=== PATIENT | female | born 1940 | race Caucasian/White ===

== ENCOUNTER 2017-07-19 09:50 | Outpatient (CLI) | payer MEDICARE, OTHER ==
--- NOTE | 2017-07-20 13:55 | Ultrasound Report ---
CAROTID DOPPLER ULTRASOUND: 07/19/2017 No comparison. INDICATION: Screening for cardiovascular disease. TECHNIQUE: Sonographic evaluation of the carotid artery systems was performed bilaterally. Real-time sonographic vascular imaging was performed by the iron erector through the carotid arteries utilizing both color-flow and Doppler spectral analysis. Multiple chain sales representative static images were saved for review. Vessel PSV cm/sec 2D Plaque Estimate % EDV cm/sec ICA/CCA PSV % Stenosis RCCA Prox 81 -- RCCA Dist 72 20 -- RECA 87 -- RT BULB 70 -- 21 0.97 SELMA Prox 65 -- 18 0.90 SELMA Mid 83 -- 27 1.15 SELMA Dist 93 -- 35 1.3 RVA 57 RVA flow direction: Antegrade. Vessel PSV cm/sec 2D Plaque Estimate % EDV cm/sec ICA/CCA PSV % Stenosis LCCA Prox 79 -- LCCA Dist 84 23 -- LECA 90 -- LFT BULB 60 -- 17 0.71 LICA Prox 70 -- 22 0.83 LICA Mid 95 -- 29 1.13 LICA Dist 70 -- 28 0.83 LVA 48 LVA flow direction: Antegrade. Velocity criteria are extrapolated from diameter data as defined by the Society of Radiologists in Ultrasound Consensus Conference Radiology 2003; 229; 340-346. Degree of Stenosis % ICA PSV cm/sec Plaque Estimate % ICA/CCA RSV Ratio ICA EDV cm/sec Normal < 125 None < 2.0 < 40 <50 < 125 < 50 < 2.0 < 40 50-69 125 - 130 >/= 50 2.0 - 4.0 40 - 100 >/= 70 but less than near occlusion > 230 >/= 50 > 4.0 > 100 Near occlusion High, low, or undetectable Visible lumen Variable Variable Total occlusion Undetectable No detectable lumen Not applicable Not applicable FINDINGS RIGHT: There is mild plaquing in the right carotid bifurcation, without evidence of a focal hemodynamically significant carotid stenosis. LEFT: There is mild plaquing in the left carotid bifurcation, without evidence of a focal hemodynamically significant carotid stenosis. The vertebral arteries demonstrate antegrade flow bilaterally. IMPRESSION: NO EVIDENCE OF CLINICALLY SIGNIFICANT STENOSIS. MTDD
== END 2017-07-19 09:51 | disposition home or self-care (01) ==
LOC: DI 09:50
PROVIDERS: ATTEND Internal Medicine
DX: Z13.6 Encounter for screening for cardiovascular disorders (principal); E78.5 Hyperlipidemia, unspecified; Z82.3 Family history of stroke
CPT/HCPCS: 93880

== ENCOUNTER 2017-09-29 16:49 | Outpatient (CLI) | payer MEDICARE, OTHER ==
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
== END 2017-09-29 16:50 | disposition home or self-care (01) ==
LOC: DI 16:49
PROVIDERS: ATTEND Podiatrist
DX: M19.072 Primary osteoarthritis, left ankle and foot (principal)

== ENCOUNTER 2017-10-20 08:09 | Outpatient (CLI) | payer MEDICARE, OTHER ==
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
== END 2017-10-20 08:10 | disposition home or self-care (01) ==
LOC: DI 08:09
PROVIDERS: ATTEND Podiatrist
DX: M19.072 Primary osteoarthritis, left ankle and foot (principal)

== ENCOUNTER 2018-06-29 07:30 | Outpatient (CLI) | payer MEDICARE, OTHER ==
[2018-06-29 17:52] LABS: BASOPHILS # (AUTO) 0.1 10^3/uL (0.0-0.1); BASOPHILS % (AUTO) 1.8 %; EOSINOPHILS # (AUTO) 0.1 10^3/uL (0.0-0.7); EOSINOPHILS % (AUTO) 2.5 %; HGB - HEMOGLOBIN 14.7 g/dL (12.0-16.0); LYMPHOCYTES # (AUTO) 1.9 10^3/uL (1.5-3.5); LYMPHOCYTES % (AUTO) 37.7 %; MEAN CORPUSCULAR HGB CONC 34.2 g/dL (32.0-36.0); MEAN CORPUSCULAR VOLUME 96.6 fL (81.0-99.0); MEAN PLATELET VOLUME 8.5 fL (7.9-10.8); MONOCYTES # (AUTO) 0.5 10^3/uL (0.0-1.0); MONOCYTES % (AUTO) 10.3 %; NEUTROPHILS # (AUTO) 2.5 10^3/uL (1.5-6.6); NEUTROPHILS % (AUTO) 47.7 %; PLT - PLATELET COUNT 204 10^3/uL (130-450); RED BLOOD COUNT 4.45 10^6/uL (4.20-5.40); RED CELL DISTRIBUTION WIDTH 12.6 % (12.0-15.0); WHITE BLOOD COUNT 5.2 x10^3/uL (4.8-10.8)
[2018-06-29 18:17] LABS: ALBUMIN/GLOBULIN RATIO 1.4 (1.0-2.2); ALKALINE PHOSPHATASE 62 IU/L (42-121); ALT ALANINE AMINOTRANSFERASE 16 IU/L (10-60); AST ASPARTATE AMINOTRANSFERASE 22 IU/L (10-42); BILIRUBIN,TOTAL 0.8 mg/dL (0.2-1.0); BUN - BLOOD UREA NITROGEN 13 mg/dL (6-20); CARBON DIOXIDE - CO2 28 mmol/L (21-32); CHLORIDE 104 mmol/L (101-111); CHOL/HDL RATIO 3.2 (<4.4); CHOLESTEROL 207 mg/dL; CK- CREATINE KINASE 119 IU/L (22-269); CREATININE 0.7 mg/dL (0.4-1.0); GFR - MDRD 81 (>89); GLUCOSE 92 mg/dL (70-100); HDL CHOLESTEROL 64 mg/dL; LDL CHOLESTEROL,CALCULATED 116 mg/dL; LDL/HDL RATIO 1.8 (<4.4); SODIUM 142 mmol/L (135-145); TOTAL PROTEIN 6.8 g/dL (6.7-8.2); VLDL CHOLESTEROL 27 mg/dL
== END 2018-06-29 07:31 | disposition home or self-care (01) ==
LOC: LAB.F 07:30
PROVIDERS: ATTEND Internal Medicine
DX: E78.5 Hyperlipidemia, unspecified (principal); B02.9 Zoster without complications; N95.2 Postmenopausal atrophic vaginitis; Z79.899 Other long term (current) drug therapy
CPT/HCPCS: 36415; 80053; 80061; 82550; 83721; 84443; 85025

== ENCOUNTER 2019-10-28 07:49 | Outpatient (CLI) | payer MEDICARE, OTHER ==
--- NOTE | 2019-10-28 13:14 | Mammography Report ---
Reason: ROUTINE MAMMO Procedure Date: 10/28/2019 Accession Number: [id number] / [id number] Procedure: AME - Screening Mammo w/Cory CPT Code: Final Report FULL RESULT: EXAM: Screening Mammo w/Cory DATE: 10/28/2019 8:17 AM CLINICAL HISTORY: Routine screening. Nulliparous patient. TECHNIQUE: (B) - Bilateral CC and MLO views were obtained. COMPARISON: 07/20/2017, 08/27/2014, 03/15/2012, 06/29/2010 and 918 9 PARENCHYMAL PATTERN: (VD) - The breasts demonstrate extremely dense parenchyma bilaterally, limiting the sensitivity of mammography. FINDINGS: No significant interval change. There are no suspicious masses, calcifications, or areas of distortion. IMPRESSION: Negative examination. BI-RADS category 1. RECOMMENDATION: (ANNUAL) - Recommend routine annual screening mammography. BI-RADS CATEGORY: (1) - Negative. STANDARD QUALIFYING STATEMENTS: 1. This examination was not reviewed with the aid of Computer-Aided Detection (CAD). 2. A negative or benign imaging report should not preclude biopsy if clinically suspicious findings are present. 3. Dense breasts may obscure an underlying neoplasm. 4. This examination was reviewed with the aid of 3D breast imaging (tomosynthesis).
== END 2019-10-28 07:50 | disposition home or self-care (01) ==
LOC: DI 07:49
PROVIDERS: ATTEND Internal Medicine
DX: Z12.31 Encounter for screening mammogram for malignant neoplasm of breast (principal)
CPT/HCPCS: 77063; 77067

== ENCOUNTER 2021-03-25 16:36 | Outpatient (CLI) | payer OTHER, MEDICARE | END 2021-03-25 16:37 | disposition critical access hospital (66) | LOC: EMS 16:36 | DX: R07.81 Pleurodynia (principal); M54.9 Dorsalgia, unspecified; V49.40XA Driver injured in collision with unspecified motor vehicles in traffic accident, initial encounter; Y92.413 State road as the place of occurrence of the external cause | CPT/HCPCS: A0425; A0429 ==

== ENCOUNTER 2021-03-25 16:57 | Emergency (ER) | payer OTHER, MEDICARE ==
[2021-03-25] MEDS ORDERED: SODIUM CHLORIDE 0.9% 1,000 ML IV STA (17:16)
[2021-03-25] MEDS ORDERED: IOVERSOL 320 100 ML VIAL IVP ONE ×2 (17:25→21:08)
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
[2021-03-25 17:37] LABS: BASOPHILS # (AUTO) 0.1 10^3/uL (0.0-0.1); BASOPHILS % (AUTO) 1.3 %; EOSINOPHILS # (AUTO) 0.2 10^3/uL (0.0-0.7); EOSINOPHILS % (AUTO) 2.7 %; HCT - HEMATOCRIT 40.6 % (37.0-47.0); HGB - HEMOGLOBIN 14.1 g/dL (12.0-16.0); LYMPHOCYTES # (AUTO) 1.7 10^3/uL (1.5-3.5); LYMPHOCYTES % (AUTO) 26.4 %; MEAN CORPUSCULAR HEMOGLOBIN 32.3 pg (27.0-31.0); MEAN CORPUSCULAR HGB CONC 34.7 g/dL (32.0-36.0); MEAN CORPUSCULAR VOLUME 93.1 fL (81.0-99.0); MEAN PLATELET VOLUME 9.6 fL (7.9-10.8); MONOCYTES # (AUTO) 0.6 10^3/uL (0.0-1.0); MONOCYTES % (AUTO) 9.5 %; NEUTROPHILS # (AUTO) 3.7 10^3/uL (1.5-6.6); NEUTROPHILS % (AUTO) 59.5 %; PLT - PLATELET COUNT 228 10^3/uL (130-450); RED BLOOD COUNT 4.36 10^6/uL (4.20-5.40); RED CELL DISTRIBUTION WIDTH 11.8 % (12.0-15.0); WHITE BLOOD COUNT 6.2 x10^3/uL (4.8-10.8)
[2021-03-25 17:42] LABS: INR 1.1 (0.8-1.2); PT - PROTHROMBIN TIME 11.9 secs (9.9-12.6)
[2021-03-25 17:48] LABS: ALBUMIN 4.3 g/dL (3.2-5.5); ALBUMIN/GLOBULIN RATIO 1.6 (1.0-2.2); BILIRUBIN,TOTAL 0.7 mg/dL (0.2-1.0); CREATININE 0.7 mg/dL (0.4-1.0); POTASSIUM 3.3 mmol/L (3.5-5.0)
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
[2021-03-25 19:14] VITALS: BP 166/98
== END 2021-03-25 19:26 | disposition home or self-care (01) ==
LOC: EDUNIT# → ED 16:57 → SUPCPDRO 16:57 → ED 19:26
DX: S00.83XA Contusion of other part of head, initial encounter (principal); S32.038A Other fracture of third lumbar vertebra, initial encounter for closed fracture; S22.31XA Fracture of one rib, right side, initial encounter for closed fracture; S20.221A Contusion of right back wall of thorax, initial encounter; V43.53XA Car driver injured in collision with pick-up truck in traffic accident, initial encounter; Y93.89 Activity, other specified; Y92.410 Unspecified street and highway as the place of occurrence of the external cause; R91.1 Solitary pulmonary nodule; Z87.891 Personal history of nicotine dependence
CPT/HCPCS: 36415; 70450; 71101; 72125; 73502; 74177; 80053; 83690; 85025; 85610; 99284; Q9967

== ENCOUNTER 2021-10-22 16:40 | Outpatient (CLI) | payer MEDICARE, OTHER ==
--- NOTE | 2021-10-23 00:07 | CT Report ---
PROCEDURE: CHEST WO INDICATIONS: F/U PULM NODULE TECHNIQUE: Noncontrast 1mm axial images were acquired from the pulmonary apices to the posterior costophrenic an gles. Axial 5 mm soft tissue kernel reconstructions were performed as well as 8 mm axial MIP and cor onal and sagittal 5 mm reformations. For radiation dose reduction, the following was used: automate d exposure control, adjustment of mA and/or kV according to patient size. COMPARISON: The prior CT study demonstrating the index nodule is not available for review at the time of this dictation. Abdomen and pelvis CT examinations, 03/25/2021 and 05/01/2013 FINDINGS: Image quality: Excellent. Lungs and pleura: Within the superior segment of the left lower lobe, adjacent to the fissure, there is a spiculated nodule seen, as on series 4 image 59 that measures 7 mm. No additional suspicious [place] nodules are seen. No acute air space opacities. No pleural effusions or pneumothorax. Central an d peripheral airways are patent and normal in caliber. Mediastinum: Heart size is normal. There is at least moderate coronary artery calcification. No per icardial effusion. No mediastinal adenopathy by size criteria. Thoracic aorta and central pulmonary arteries are normal in size. Esophagus is normal in caliber. No hiatal hernia. Bones and chest wall: No suspicious bony lesions. No vertebral body compression fractures. Age-caity ropriate degenerative changes are seen. There is accentuated thoracic kyphosis. No axillary or marsh praclavicular adenopathy by size criteria. The thyroid is normal in size and there are no incidental findings. Abdomen: An accessory splenule is incidentally noted along the hilum of the primary spleen. Visua lized upper abdominal solid organs and bowel loops appear normal in the absence of contrast. IMPRESSION: There is a 7 mm spiculated soft tissue nodule seen within the superior segment of the left lower lobe adjacent to the left oblique fissure. In the absence of prior studies demonstrating this to be a sta ble, benign lesion, a follow-up noncontrast chest CT would be recommended in 6-12 months by published criteria. Incidental note is made of: At least moderate coronary artery calcification Accessory splenule Reviewed by: Deejay Lipscomb MD on 10/22/2021 11:06 PM [facility] Approved by: Deejay Lipscomb MD on 10/22/2021 11:06 PM [facility] Station ID: [id number]
== END 2021-10-22 16:41 | disposition home or self-care (01) ==
LOC: DI 16:40
PROVIDERS: ATTEND Internal Medicine
DX: R91.1 Solitary pulmonary nodule (principal)

== ENCOUNTER 2023-03-20 10:40 | Outpatient (CLI) | payer MEDICARE, OTHER ==
--- NOTE | 2023-03-20 18:06 | CT Report ---
PROCEDURE: CHEST WO INDICATIONS: PULMONARY NODULE TECHNIQUE: Noncontrast 1mm axial images were acquired from the pulmonary apices to the posterior costophrenic an gles. Axial 5 mm soft tissue kernel reconstructions were performed as well as 8 mm axial MIP and cor onal and sagittal 5 mm reformations. For radiation dose reduction, the following was used: automate d exposure control, adjustment of mA and/or kV according to patient size. COMPARISON: CT chest 10/22/2021 FINDINGS: Images are denoted as (series #/image #). Lymph nodes: No evidence of thoracic lymphadenopathy however evaluation for mediastinal and hilar dorita nopathy is limited in the absence of intravenous contrast. Vasculature: Aorta and main pulmonary artery diameters are within normal range. Heart: No pericardial effusion. Coronary artery calcifications are present. Lung parenchyma and pleura: No significant change in the previously demonstrated fissural nodule at t he superior segment of the left lower lobe measuring 7 mm (4/66) previously 7 mm. 6 mm nodule posteri or right lower lobe (4/110), unchanged. No consolidation or pleural effusion. Airways: Few foci of peripheral airways mucous plugging present. Chest wall/musculoskeletal: Multilevel degenerative change of the visualized spine. Visualized upper abdomen: Unremarkable. IMPRESSION: No significant change in previously demonstrated pulmonary nodules. Reviewed by: Gerhard Cardenas MD on 03/20/2023 6:04 PM PDT Approved by: Gerhard Cardenas MD on 03/20/2023 6:04 PM PDT Station ID: [id number]
== END 2023-03-20 10:41 | disposition home or self-care (01) ==
LOC: DI 10:40
PROVIDERS: ATTEND Internal Medicine
DX: R91.8 Other nonspecific abnormal finding of lung field (principal)

== ENCOUNTER 2023-03-20 11:30 | Outpatient (CLI) | payer MEDICARE, OTHER ==
--- NOTE | 2023-03-21 08:54 | Mammography Report ---
BILATERAL DIGITAL SCREENING MAMMOGRAM 3D/2D: 03/20/2023 CLINICAL: Routine screening. Comparison is made to exams dated: 10/28/2019 mammogram, 07/20/2017 mammogram, and 08/27/2014 mammogram - [facility]. Both breasts are heterogeneously dense, which may obscure small masses (category c / 51-75% glandular tissue). There are benign calcifications in both breasts. No significant masses, calcifications, or other findings are seen in either breast. There has been no significant interval change. IMPRESSION: BENIGN There is no mammographic evidence of malignancy. A 1 year screening mammogram is recommended. Based on the Tyrer Cuzick model (a risk assessment model) the patients lifetime risk is 1.9% and her 10 year risk is 0.0%. According to the ACR, ACS, and NCCN guidelines, an annual breast MRI exam rehana g with mammogram is recommended if the patients lifetime risk is 20% or greater. This exam was interpreted at Station ID: [id number]. NOTE: For mammograms, a report in lay terms will be sent to the patient. Approximately 15% of breast malignancies will not be visualized mammographically. In the management of a palpable breast mass, a negative mammogram must not discourage biopsy of a clinically suspicious lesion. Electronically Signed By: Jair becerra/carlos:03/20/2023 13:20:32 letter sent: No_Letter ACR BI-RADS Category 2: Benign Finding(s) 3342F PARENCHYMAL PATTERN: (D) - The breast(s) demonstrate(s) heterogeneously dense fibroglandular veronica vargas. BI-RADS CATEGORY: (2) - 2 Mammogram [id number] 1 year screening LATERALITY: (B)
== END 2023-03-20 23:59 | disposition home or self-care (01) ==
LOC: DI 11:30
PROVIDERS: ATTEND Internal Medicine
DX: Z12.31 Encounter for screening mammogram for malignant neoplasm of breast (principal)

== ENCOUNTER 2023-11-11 09:51 | Outpatient (CLI) | payer MEDICARE, OTHER ==
--- NOTE | 2023-11-11 13:35 | CT Report ---
PROCEDURE: Head WO INDICATIONS: HEADACHE TECHNIQUE: Noncontrast 4.5 mm thick angled axial sections acquired from the foramen magnum to the vertex. For r adiation dose reduction, the following was used: automated exposure control, adjustment of mA and/or kV according to patient size. COMPARISON: None. FINDINGS: Image quality: Excellent. CSF spaces: Basal cisterns are patent. No extra-axial fluid collections. Ventricles are normal in size and shape. There is mild volume loss for patient age. Brain: No midline shift. No intracranial masses or hemorrhage. Nicholson-white matter interface is norm al. There are mild deep and periventricular white matter changes. Skull and face: Calvarium and visualized facial bones are intact, without suspicious lesions. Sinuses: Visualized sinuses and mastoids are clear. IMPRESSION: No acute intracranial pathology. Very mild findings likely associated with chronic microvascular ischemic changes. Reviewed by: Hanna Davis MD on 11/11/2023 1:34 PM PST Approved by: Hanna Davis MD on 11/11/2023 1:34 PM PST Station ID: [id number]
== END 2023-11-11 09:52 | disposition home or self-care (01) ==
LOC: DI 09:51
PROVIDERS: ATTEND Internal Medicine
DX: R51.9 Headache, unspecified (principal)

== ENCOUNTER 2024-06-17 10:22 | Outpatient (CLI) | payer MEDICARE, OTHER ==
[2024-06-17 10:51] LABS: CHOL/HDL RATIO 4.3 (<4.4); CHOLESTEROL 264 mg/dL; HDL CHOLESTEROL 61 mg/dL; LDL CHOLESTEROL,CALCULATED 174 mg/dL; LDL/HDL RATIO 2.9 (<4.4); TRIGLYCERIDES 145 mg/dL; VLDL CHOLESTEROL 29 mg/dL
== END 2024-06-17 10:23 | disposition home or self-care (01) ==
LOC: LAB 10:22
PROVIDERS: ATTEND Nurse Practitioner Adult Health
DX: E78.5 Hyperlipidemia, unspecified (principal)
CPT/HCPCS: 36415; 80061; 83721